=== PATIENT | male | born 1985 | race Caucasian/White ===

== ENCOUNTER → 2018-11-06 | Outpatient (REF) | payer OTHER ==
--- NOTE | 2018-11-06 15:17 | REP ---
LUMBAR SPINE SERIES: Five views. HISTORY: Low back pain. Comparison lumbar spine radiographs are from June 04, 2016. FINDINGS: There is a minimal levoconvex curve in the lumbar spine on the AP view unchanged. Lumbar vertebral body heights are preserved. There is a bilateral L4 spondylolysis noted and a grade 1 L4-5 spondylolisthesis is observed, 4 mm in extent. There is degenerative disc disease at L4-5 as well with narrowing and spur formation. Minimal spurring is seen at L5-S1. Other disc spaces are maintained. Pedicles and posterior elements are otherwise intact. IMPRESSION: Bilateral L4 spondylolysis and a grade 1 4 mm L4-5 spondylolisthesis. The spondylolisthesis is new when compared with August 19, 2012 and June 16, 2016 prior studies. Electronically Signed by Luisito Irvin MD 11/06/2018 04:27 P
== END ==
LOC: M RAD 10:16 → EDSTATUS 11-21 09:13
PROVIDERS: ATTEND Nurse Practitioner Family
DX: M47.896 Other spondylosis, lumbar region (principal); M43.16 Spondylolisthesis, lumbar region; M54.5 Low back pain

== ENCOUNTER → 2019-11-03 | Outpatient (REF) | payer OTHER ==
[2019-11-03 13:30] LABS: APPEARANCE, URINE CLEAR (CLEAR); BACTERIA, URINE AUTO NEGATIVE (NEGATIVE); BILIRUBIN, URINE AUTO NEGATIVE (NEGATIVE); BLOOD, URINE BLOOD NEGATIVE (NEGATIVE); COLOR, URINE STRAW (YELLOW); GLUCOSE, URINE (UA) AUTO NEGATIVE (NEGATIVE); KETONE, URINE AUTO NEGATIVE (NEGATIVE); LEUKOCYTE ESTERASE, URINE AUTO NEGATIVE (NEGATIVE); NITRITE, URINE AUTO NEGATIVE (NEGATIVE); PROTEIN, URINE AUTO NEGATIVE (NEGATIVE); RBC, URINE AUTO 0 /HPF (0-3); SPECIFIC GRAVITY URINE AUTO 1.008 (1.002-1.035); SQUAMOUS EPITHELIAL CELL UR AU 0 /HPF (0-6); UROBILINOGEN, URINE AUTO 0.2 mg/dL (0.0-2.0); WBC, URINE AUTO 0 /HPF (0-3)
== END ==
LOC: M SMT 12:37
PROVIDERS: ATTEND Nurse Practitioner Women's Health
DX: R35.0 Frequency of micturition (principal)

== ENCOUNTER → 2024-08-03 | Outpatient (CLI) | payer OTHER ==
[~2024-08-03] MED LIST: ISOVUE-300 61% 100ML VIAL As Ordered ONE; LIDOCAINE 1% MDV 20ML VIAL As Ordered ONE; ROPIvacaine 0.5% 30ML VIAL As Ordered ONE; methylPREDNISolone 80MG/ML SUSP 1ML VIAL As Ordered ONE
== END ==
LOC: M RAD 11:17
PROVIDERS: ATTEND Student in an Organized Health Care Education/Training Program
DX: M16.51 Unilateral post-traumatic osteoarthritis, right hip (principal)
CPT/HCPCS: 20610; 77002; J1010; J2795; Q9967